=== PATIENT | female | born 1955 | race Caucasian/White ===

== ENCOUNTER → 2016-12-13 | Outpatient (CLI) | payer OTHER ==
[~2016-12-13] MED LIST: ATV5 PO; EFF50 PO; LRT5 PO; [UNRECOGNIZED DRUG - OTHER]
[2016-12-13 13:09] LABS: ESTIMATED AVERAGE GLUCOSE 128 mg/dl; HA1C FLAG Normal (Normal)
[2016-12-13 13:16] LABS: BLOOD UREA NITROGEN 13 mg/dl (7-18); BUN/CREATININE RATIO 17.7 (10-20); CALCIUM 8.8 mg/dl (8.5-10.1); CARBON DIOXIDE 30 mmol/L (21-32); CHLORIDE 109 mmol/L (98-107); CREATININE 0.74 mg/dl (0.60-1.20); GLUCOSE 121 mg/dl (70-99); POTASSIUM 3.8 mmol/L (3.5-5.1); SODIUM 142 mmol/L (136-145)
[2016-12-13 13:20] LABS: ALB/GLOB RATIO 0.9 (0.9-2); ALKALINE PHOSPHATASE 89 U/L (45-117); ALT/SGPT 20 U/L (12-78); AST/SGOT 11 U/L (15-37); CHOLESTEROL 135 mg/dl (0-200); CHOLESTEROL/HDL RATIO 2.9; HDL CHOLESTEROL 47 mg/dl; LDL CHOLESTEROL CALCULATED 68 mg/dl; TRIGLYCERIDES 98 mg/dl (0-150); VERY LOW DENSITY LIPOPROT CALC 20 mg/dl
== END ==
LOC: C.LABPVFM 08:25
PROVIDERS: ATTEND Nurse Practitioner
DX: R73.01 Impaired fasting glucose (principal); I67.9 Cerebrovascular disease, unspecified; I10 Essential (primary) hypertension

== ENCOUNTER → 2017-06-20 | Outpatient (CLI) | payer OTHER ==
[2017-06-20 14:27] LABS: BLOOD UREA NITROGEN 10 mg/dl (7-18); CARBON DIOXIDE 27 mmol/L (21-32); CREATININE 0.96 mg/dl (0.60-1.20); GLUCOSE 131 mg/dl (70-99); POTASSIUM 4.2 mmol/L (3.5-5.1); SODIUM 138 mmol/L (136-145)
== END | disposition home or self-care (01) ==
LOC: C.LABPVFM 10:16
PROVIDERS: ATTEND Nurse Practitioner
DX: I10 Essential (primary) hypertension (principal); R73.01 Impaired fasting glucose

== ENCOUNTER → 2017-07-03 | Outpatient (CLI) | payer OTHER | END | disposition home or self-care (01) | LOC: C.LABPVFM 08:28 | PROVIDERS: ATTEND Nurse Practitioner | DX: M25.50 Pain in unspecified joint (principal) ==

== ENCOUNTER → 2017-11-24 | Outpatient (CLI) | payer BC | END | disposition home or self-care (01) | LOC: C.PATHSPEC 17:31 | PROVIDERS: ATTEND Orthopaedic Surgery | DX: M67.431 Ganglion, right wrist (principal) ==